=== PATIENT | male | born 1945 | race Two or more races ===

== ENCOUNTER → 2021-01-19 | Outpatient (CLI) | payer MEDICAID | END | disposition home or self-care (01) | LOC: LAB 15:55 | PROVIDERS: ATTEND Internal Medicine Pulmonary Disease | DX: J47.1 Bronchiectasis with (acute) exacerbation (principal); J98.4 Other disorders of lung; R06.00 Dyspnea, unspecified; Z87.01 Personal history of pneumonia (recurrent) | CPT/HCPCS: 87040; 87070; 87205 ==

== ENCOUNTER → 2021-01-26 | Outpatient (CLI) | payer MEDICAID | END | disposition home or self-care (01) | LOC: LAB 08:49 | PROVIDERS: ATTEND Internal Medicine Pulmonary Disease | DX: Z01.812 Encounter for preprocedural laboratory examination (principal); Z20.822 Contact with and (suspected) exposure to COVID-19 | CPT/HCPCS: 36415; 87426 ==

== ENCOUNTER → 2021-01-27 | Outpatient (CLI) | payer MEDICAID ==
[~2021-01-27] MED LIST: ALBUTEROL SULF 2.5 MG/0.5ML(0.5%) NEB SOLN ONE
== END | disposition home or self-care (01) ==
LOC: RT 08:51
PROVIDERS: ATTEND Internal Medicine Pulmonary Disease
DX: J98.8 Other specified respiratory disorders (principal); R06.00 Dyspnea, unspecified
CPT/HCPCS: 94060; 94727; 94729

== ENCOUNTER 2022-03-23 13:06 | Inpatient (IN) | payer MEDICAID ==
[~2022-03-23] VITALS: Ht 157.5 cm; Wt 79.3 kg
[2022-03-23 15:19] LABS: Basophils # (auto) 0 10 ^3/uL (0-0.2); Eosinophils # (auto) 0 10 ^3/uL (0-0.8); Eosinophils % (auto) 0.1 % (0.0-7.0); Hematocrit 48.9 % (41.0-53.0); Hemoglobin 16.5 g/dL (13.5-17.5); Lymphocytes # (auto) 1.4 10 ^3/uL (0.4-5.4); Mean Corpuscular Hemoglobin 30.6 pg (28.0-32.0); Mean Corpuscular Hgb Conc. 33.7 g/dL (32.0-36.0); Mean Corpuscular Volume 90.8 fL (80.0-100.0); Monocytes # (auto) 0.9 10 ^3/uL (0-1.3); Monocytes % (auto) 4.9 % (0.0-12.0); Neutrophils # (auto) 15.3 10 ^3/uL (1.6-8.6); Red Blood Cells 5.39 10^6/uL (4.5-5.90); Red Cell Distribution Width 14.5 % (11.8-14.3); White Blood Cell 17.6 10^3/uL (4.4-10.8)
[2022-03-23 15:32] LABS: INR 1.07 (0.9-1.15)
[2022-03-23 15:34] LABS: Albumin 3.2 g/dL (3.4-5.0); Calcium 9.1 mg/dL (8.5-10.1); Potassium 4.4 mmol/L (3.5-5.1)
[2022-03-23 15:36] LABS: BUN/Creatinine Ratio 23.1
[2022-03-23 15:39] LABS: Bilirubin, Total 0.4 mg/dL (0.2-1.0); Total Protein 8.5 g/dL (6.4-8.2)
[2022-03-23 21:29] LABS: Urine Bacteria NONE SEEN /hpf (None Seen); Urine Blood 1+ /uL (Negative); Urine WBC 7 /hpf (0 - 3)
[2022-03-23] MEDS ORDERED: cefTRIAXone 1GM/50ML D5W 50 ML IV ONE (22:45)
[2022-03-23] MEDS ORDERED: AZITHROMYCIN 500MG/ 250ML 250 ML IV ONE (22:45)
[2022-03-24] MEDS ORDERED: ALBUTEROL SULF 2.5 MG/0.5ML(0.5%) NEB SOLN NEB PRN (05:30)
[2022-03-24] MEDS ORDERED: MORPHINE SULFATE INJ 2 MG/ml SYRG IV PRN (05:30)
[2022-03-24] MEDS ORDERED: ACETAMINOPHEN 500 MG TAB PO PRN (05:30)
[2022-03-24] MEDS ORDERED: ONDANSETRON HCL 4 MG/2 ML VIAL IV PRN (05:30)
[2022-03-24 06:42] VITALS: BP 129/78
[2022-03-24] MEDS ORDERED: predniSONE 20 MG TAB PO SCH (10:00)
[2022-03-24] MEDS: ALBUTEROL SULF 2.5 MG/0.5ML(0.5%) NEB SOLN NEB SCH ×3 (10:25→18:58)
[2022-03-24 18:15] VITALS: BP 156/75
[2022-03-24] MEDS ORDERED: ALBUAER3 IN (18:44)
[2022-03-24] MEDS ORDERED: LEVO500T31 PO (18:44)
[2022-03-24] MEDS ORDERED: DEXT1SYP9 PO (18:44)
[2022-03-24 19:48] LABS: Basophils # (auto) 0 10 ^3/uL (0-0.2); Basophils % (auto) 0.2 % (0.0-2.0); Eosinophils # (auto) 0 10 ^3/uL (0-0.8); Hematocrit 46.3 % (41.0-53.0); Hemoglobin 15.4 g/dL (13.5-17.5); Lymphocytes # (auto) 0.6 10 ^3/uL (0.4-5.4); Lymphocytes % (auto) 4.5 % (10.0-50.0); Mean Corpuscular Hgb Conc. 33.3 g/dL (32.0-36.0); Mean Corpuscular Volume 90.2 fL (80.0-100.0); Monocytes # (auto) 0.2 10 ^3/uL (0-1.3); Monocytes % (auto) 1.7 % (0.0-12.0); Neutrophils # (auto) 12.9 10 ^3/uL (1.6-8.6); Neutrophils % (auto) 93.6 % (37.0-80.0); Red Blood Cells 5.14 10^6/uL (4.5-5.90); Red Cell Distribution Width 14.3 % (11.8-14.3); White Blood Cell 13.7 10^3/uL (4.4-10.8)
[2022-03-24] MEDS ORDERED: cefTRIAXone 1GM/50ML D5W 50 ML IV SCH (22:00)
[2022-03-24] MEDS ORDERED: AZITHROMYCIN 500MG/ 250ML 250 ML IV SCH (22:00)
== END 2022-03-24 20:50 | disposition home health service (06) | DRG 139 ==
LOC: ER 13:06 → TELE 03-24 05:28 → TELE-WESTW 03-24 15:53
PROVIDERS: ADMIT Hospitalist; ATTEND Hospitalist
DX: J18.9 Pneumonia, unspecified organism (principal); Z20.822 Contact with and (suspected) exposure to COVID-19
CPT/HCPCS: 36415; 71046; 80053; 81001; 84484; 85025; 85610; 85730; 93005; 94640; 96365; 96368; G0378; J0696

== ENCOUNTER → 2024-09-18 | Outpatient (CLI) | payer MEDICAID ==
[~2024-09-18] MED LIST changes: +ALBUAER3 IN; +DEXT1SYP9 PO; +LEVO500T31 PO
== END | disposition home or self-care (01) ==
LOC: RT 11:03
PROVIDERS: ATTEND Internal Medicine Pulmonary Disease
DX: J44.9 Chronic obstructive pulmonary disease, unspecified (principal)
CPT/HCPCS: 94060; 94727; 94729

== ENCOUNTER 2025-09-02 15:04 | Outpatient (CLI) | payer MEDICAID ==
[~2025-09-02 15:04] MED LIST changes: -ALBUTEROL SULF 2.5 MG/0.5ML(0.5%) NEB SOLN ONE
[2025-09-02] MEDS ORDERED: ALBUTEROL SULF 2.5 MG/0.5ML(0.5%) NEB SOLN ONE (15:15)
== END 2025-09-02 17:00 | disposition home or self-care (01) ==
LOC: RT 15:04
PROVIDERS: ATTEND Internal Medicine Pulmonary Disease
DX: J43.9 Emphysema, unspecified (principal); J47.9 Bronchiectasis, uncomplicated
CPT/HCPCS: 94060; 94729